=== PATIENT | female | born 1980 | race Two or more races ===

== ENCOUNTER 2016-04-06 17:08 | Inpatient (IN) | payer MEDICAID ==
[~2016-04-06] VITALS: Ht 157.5 cm; Wt 75.6 kg
[2016-04-07 19:40] VITALS: BP_SYST 174; BP_SYST 182; RESP 18; TEMP 97.8; BMI 31.7
[2016-04-07] MEDS ORDERED: PNEUMO VAC 25 MCG/0.5 ML VL IM.VACC ONE (20:50)
[2016-04-07] MEDS ORDERED: Flu Vaccine Quadrivalent 60 MCG/0.5 ML IM.VACC ONE (20:50)
[2016-04-07] MEDS ORDERED: SALINE FLUSH 10 ML FLUSH PRN (21:15)
[2016-04-07] MEDS ORDERED: DEXTROSE 50% SYRINGE 50 ML IV PRN (21:20)
[2016-04-07] MEDS ORDERED: GLUCAGON 1 MG VIAL IM PRN (21:20)
[2016-04-07 22:42] VITALS: BP_SYST 188; RESP 18; TEMP 98.2
[2016-04-07 22:58] VITALS: RESP 16
[2016-04-07] MEDS: Losartan 50 MG TAB PO SCH (23:14)
[2016-04-08] VITALS (7 sets, daily range): BP systolic 122–184; RESP 16–22; TEMP 97.4–98.4; Ht 157.5 cm; Wt 75.6 kg
[2016-04-08] MEDS: SODIUM CHLORIDE 0.9% FLUSH BAG 500 ML IV SCH (06:00)
[2016-04-08] MEDS: BUMETANIDE 1 MG/4 ML VIAL IV SCH ×2 (08:47→17:17)
[2016-04-08] MEDS: SALINE FLUSH 10 ML FLUSH SCH ×2 (08:47→22:09)
[2016-04-08] MEDS: SPIRONOLACTONE 25 MG TAB PO SCH (08:48)
[2016-04-08] MEDS: Losartan 50 MG TAB PO SCH ×2 (08:49→22:09)
[2016-04-08] MEDS: CITALOPRAM 20 MG TAB PO SCH (08:49)
[2016-04-08] MEDS: METOLAZONE 5 MG TAB PO SCH (08:51)
[2016-04-08] MEDS: KCL CR 10 MEQ TAB PO SCH ×2 (08:51→22:09)
[2016-04-08] MEDS: ENOXAPARIN 40 MG/0.4 ML SYR SUBQ SCH (08:54)
[2016-04-08] MEDS ORDERED: MISSING DOSE XX ONE (15:40)
[2016-04-08] MEDS: ENALAPRILAT 2.5 MG/2 ML VIAL IV SCH ×2 (18:18→23:45)
[2016-04-09] VITALS (7 sets, daily range): BP systolic 120–131; RESP 16–20; TEMP 97.1–98.8
[2016-04-09] MEDS: SODIUM CHLORIDE 0.9% FLUSH BAG 500 ML IV SCH (05:54)
[2016-04-09] MEDS: ENALAPRILAT 2.5 MG/2 ML VIAL IV SCH ×4 (06:45→23:30)
[2016-04-09] MEDS: SALINE FLUSH 10 ML FLUSH SCH ×2 (08:49→20:09)
[2016-04-09] MEDS: BUMETANIDE 1 MG/4 ML VIAL IV SCH ×2 (09:10→17:33)
[2016-04-09] MEDS: METOLAZONE 5 MG TAB PO SCH (09:11)
[2016-04-09] MEDS: CITALOPRAM 20 MG TAB PO SCH (09:12)
[2016-04-09] MEDS: Losartan 50 MG TAB PO SCH ×2 (09:12→20:09)
[2016-04-09] MEDS: KCL CR 10 MEQ TAB PO SCH ×2 (09:13→20:09)
[2016-04-09] MEDS: ENOXAPARIN 40 MG/0.4 ML SYR SUBQ SCH (09:14)
[2016-04-09] MEDS: SPIRONOLACTONE 25 MG TAB PO SCH (09:15)
[2016-04-10 03:56] VITALS: BP_SYST 129; RESP 16; TEMP 98.3
[2016-04-10] MEDS: SODIUM CHLORIDE 0.9% FLUSH BAG 500 ML IV SCH (05:32)
[2016-04-10] MEDS: ENALAPRILAT 2.5 MG/2 ML VIAL IV SCH (06:10)
[2016-04-10 07:41] VITALS: BP_SYST 106; RESP 18; TEMP 97.6
[2016-04-10] MEDS: ENOXAPARIN 40 MG/0.4 ML SYR SUBQ SCH (09:00)
[2016-04-10] MEDS: METOLAZONE 5 MG TAB PO SCH (09:00)
[2016-04-10] MEDS: BUMETANIDE 1 MG/4 ML VIAL IV SCH (09:00)
[2016-04-10] MEDS ORDERED: LISINOPRIL 5 MG TAB PO SCH (09:40)
[2016-04-10] MEDS: KCL CR 10 MEQ TAB PO SCH ×2 (10:01→21:18)
[2016-04-10] MEDS: CITALOPRAM 20 MG TAB PO SCH (10:01)
[2016-04-10] MEDS: SPIRONOLACTONE 25 MG TAB PO SCH (10:01)
[2016-04-10] MEDS: SALINE FLUSH 10 ML FLUSH SCH ×2 (10:01→21:18)
[2016-04-10] MEDS: Losartan 50 MG TAB PO SCH ×2 (10:02→21:18)
[2016-04-10] MEDS: METOPROLOL TART 50 MG TAB PO SCH (10:47)
[2016-04-10 11:20] VITALS: BP_SYST 123; RESP 18; TEMP 98
[2016-04-10] MEDS: DOCUSATE SOD 100 MG CAP PO SCH ×2 (15:12→21:18)
[2016-04-10 15:54] VITALS: BP_SYST 151; RESP 18; TEMP 98.2
[2016-04-10] MEDS: BUMETANIDE 1 MG TAB PO SCH (16:53)
[2016-04-10 19:31] VITALS: BP_SYST 129; RESP 18; TEMP 98.1
[2016-04-11 05:41] VITALS: BP_SYST 125; RESP 18; TEMP 98.2
[2016-04-11] MEDS: SODIUM CHLORIDE 0.9% FLUSH BAG 500 ML IV SCH (06:22)
[2016-04-11 07:26] VITALS: BP_SYST 123; RESP 18; TEMP 98.3
[2016-04-11] MEDS: KCL CR 10 MEQ TAB PO SCH (09:00)
[2016-04-11] MEDS: BUMETANIDE 1 MG TAB PO SCH (09:00)
[2016-04-11] MEDS ORDERED: BUMETANIDE 1 MG TAB PO SCH (09:09)
[2016-04-11] MEDS: SALINE FLUSH 10 ML FLUSH SCH (09:43)
[2016-04-11] MEDS: Losartan 50 MG TAB PO SCH (10:21)
[2016-04-11] MEDS: METOPROLOL TART 50 MG TAB PO SCH (10:21)
[2016-04-11] MEDS: DOCUSATE SOD 100 MG CAP PO SCH (10:21)
[2016-04-11] MEDS: SPIRONOLACTONE 25 MG TAB PO SCH (10:22)
[2016-04-11] MEDS: CITALOPRAM 20 MG TAB PO SCH (10:22)
[2016-04-11 11:08] VITALS: BP_SYST 123; RESP 18; TEMP 98.3
[2016-04-11] MEDS ORDERED: MIDAZOLAM 2 MG/2 ML INJ ONE (15:27)
[2016-04-11] MEDS ORDERED: MEPERIDINE 25 MG/ML ONE (15:27)
== END 2016-04-11 11:50 | disposition home or self-care (01) | DRG 293 ==
LOC: ENRESERVTM → ENRESERVDT → 4NT 04-07 20:26 → ENPENDDIS 04-07 20:26
PROVIDERS: ADMIT Internal Medicine; ATTEND Internal Medicine
PROC: B246ZZ4 Ultrasonography of Right and Left Heart, Transesophageal (ICD-10-PCS; principal; 2016-04-11)
DX: I50.23 Acute on chronic systolic (congestive) heart failure (principal); E11.9 Type 2 diabetes mellitus without complications; I25.119 Atherosclerotic heart disease of native coronary artery with unspecified angina pectoris; I11.0 Hypertensive heart disease with heart failure; F17.200 Nicotine dependence, unspecified, uncomplicated; Z82.49 Family history of ischemic heart disease and other diseases of the circulatory system; Z79.4 Long term (current) use of insulin
CPT/HCPCS: 80053; 80061; 80162; 82947; 83036; 83880; 84100; 84443; 84484; 85025; 90732; 93005; 93306; 93312; 94799